=== PATIENT | female | born 2000 | race Two or more races ===

== ENCOUNTER 2024-06-07 16:43 | Emergency (ER) | payer OTHER ==
[~2024-06-07] VITALS: Ht 157.5 cm; Wt 50.3 kg
[2024-06-07] MEDS ORDERED: TETANUS DIPHTHERIA TOX. ADSOR 5 ML VIAL IM ONE (18:10)
[2024-06-07] MEDS ORDERED: LIDOCAINE HCL 1% 10ML VIAL ONE (18:10)
[2024-06-07] MEDS ORDERED: LIDOCAINE HCL 1% 10ML VIAL PERCUT ONE (18:15)
[2024-06-07] MEDS ORDERED: TETANUS & DIPHTHERIA TOX,ADULT 0.5 ML VIAL IM ONE (18:15)
== END 2024-06-07 19:37 | disposition home or self-care (01) ==
LOC: ER 16:44
DX: S91.322A Laceration with foreign body, left foot, initial encounter (principal); W01.0XXA Fall on same level from slipping, tripping and stumbling without subsequent striking against object, initial encounter; Y93.89 Activity, other specified; Y92.018 Other place in single-family (private) house as the place of occurrence of the external cause

== ENCOUNTER 2024-06-15 12:05 | Emergency (ER) | payer OTHER ==
[~2024-06-15] VITALS: Ht 157.5 cm; Wt 52.2 kg
== END 2024-06-15 13:50 | disposition home or self-care (01) ==
LOC: ER 12:06
DX: Z48.02 Encounter for removal of sutures (principal)